=== PATIENT | female | born 1930 | race Native Hawaiian/Other Pacific Islander ===

== ENCOUNTER 2018-10-22 16:53 | Observation (INO) | payer MEDICARE, MEDICAID ==
[2018-10-22 16:53] VITALS: BMI 26.3
[2018-10-22] MEDS ORDERED: Iohexol 240 (50 ml) PO STA (17:54)
--- NOTE | 2018-10-22 18:01 | C.PDOC ---
History Of Present Illness 88-year-old female presents to the ED for evaluation of right-sided flank pain that has been radiating into her right lower abdomen for months. Patient states she initially had a big rash to the area, but now has scarring to her skin that looks like healed shingles. Patient states her pain has been constant since onset and has been progressively worsening. She was able to find transient relief after applying Biofreeze gel onto the area. However, over the past week her pain has been worsening and unrelieved even after the gel application. Patient was evaluated by her PMD, Dr. Kathleen, who referred her to the ED for further evaluation. Patient states she has been eating/drinking well and denies fever, chills, weight change, changes in urinary/bowel habits. Time Seen by Provider: 10/22/18 17:28 Chief Complaint (Nursing): Abdominal Pain History Per: Patient History/Exam Limitations: no limitations Onset/Duration Of Symptoms: Other (months ) Current Symptoms Are (Timing): Worse Location Of Pain/Discomfort: RLQ Radiation Of Pain To:: Flank (right) Quality Of Discomfort: "Pain" Associated Symptoms: denies: Fever, Chills, Urinary Symptoms Additional History Per: Patient Abnormal Vaginal Bleeding: No Past Medical History Reviewed: Historical Data, Nursing Documentation, Vital Signs Vital Signs: Last Vital Signs Temp 98.1 F 10/22/18 16:55 Pulse 99 H 10/22/18 16:55 Resp 18 10/22/18 16:55 BP 116/75 10/22/18 16:55 Pulse Ox 100 10/22/18 16:55 Primary Care Provider: Chris Kathleen - Medical History PMH: Gastritis, HTN Surgical History: No Surg Hx - [facility] Procedures CLOSED ENDOSCOPIC BIOPSY OF LARGE INTESTINE (10/19/14) ESOPHAGOGASTRODUODENOSCOPY [EGD] W/CLOSED BIOPSY (10/19/14) Family History: States: Unknown Family Hx - Social History Hx Tobacco Use: Yes Hx Alcohol Use: No Hx Substance Use: No - Immunization History Hx Tetanus Toxoid Vaccination: No Hx Influenza Vaccination: No Hx Pneumococcal Vaccination: No Review Of Systems Constitutional: Negative for: Fever, Chills, Weight loss Gastrointestinal: Positive for: Abdominal Pain (right-sided). Negative for: Diarrhea, Constipation Genitourinary: Negative for: Dysuria, Frequency, Hematuria Musculoskeletal: Positive for: Other (right flank pain ) Skin: Positive for: Rash Physical Exam - Physical Exam Appears: Non-toxic, No Acute Distress Skin: Warm, Dry, Other (pigmentation from healed shingles-like rash around T11- T12 dermatomes ) Head: Atraumatic, Normacephalic Neck: Supple Chest: Symmetrical, No Deformity, No Tenderness Cardiovascular: Rhythm Regular, No Murmur Respiratory: Normal Breath Sounds, No Rales, No Rhonchi, No Wheezing Gastrointestinal/Abdominal: Soft, Tenderness (right lower quadrant ), Guarding (localized ), No Rebound Back: No CVA Tenderness Extremity: Normal ROM, Capillary Refill (less than 2 seconds ) Neurological/Psych: Oriented x3, Normal Speech, Normal Cognition ED Course And Treatment - Laboratory Results Result Diagrams: 10/22/18 18:29 10/22/18 18:29 Lab Interpretation: No Acute Changes O2 Sat by Pulse Oximetry: 100 (on RA) Pulse Ox Interpretation: Normal - CT Scan/US CT abd/pel Other Rad Studies (CT/US): Read By Radiologist, Radiology Report Reviewed CT/US Interpretation: EXAM: CT Abdomen and Pelvis with IV and oral contrast agent. CLINICAL HISTORY: Abd pain right sided flank pain. TECHNIQUE: Axial computed tomography images of the abdomen and pelvis with intravenous contrast. 0.00 mGy-cm. CONTRAST: With; OMNI 240 & 100MLS VISI 320. COMPARISON: None provided. FINDINGS: LUNG BASES: The lung bases appear clear. No pleural effusions are seen. LIVER: A 0.9 cm and a 1.1 cm cysts are seen in the anterior and anterolateral right hepatic lobe respectively. GALLBLADDER AND BILE DUCTS: There are several noncalcified densities seen in the gallbladder lumen compatible with noncalcified choleliths. No biliary ductal dilatation is evident. PANCREAS: Unremarkable. SPLEEN: Unremarkable. ADRENAL GLANDS: A 1.5 x 1.0 cm solid homogeneous mass is seen in the right adrenal gland thought compatible with a small cortical adenoma. Unremarkable left adrenal gland. KID NEYS, URETERS, AND BLADDER: The right kidney is not identified thought compatible with previous right nephrectomy; or less likely, congenital aplasia. The left kidney appears normal in size and position.There is no hydronephrosis or hydroureter. No urinary calculi are seen. The urinary bladder appears normal in size and configuration. STOMACH AND BOWEL: A small hiatal hernia is noted. Unremarkable appearance of the stomach. There is mucosal wall edematous thickening of the duodenal bulb and descending duodenum compatible with duodenitis. No evidence of bowel obstruction. No evidence suggesting enteritis or colitis. APPENDIX: No evidence of acute appendicitis on CT examination. PERITONEUM: No free fluid. No free air. LYMPH NODES: No lymphadenopathy is evident. REPRODUCTIVE: Unremarkable as visualized. VASCULATURE: No evidence of abdominal aortic aneurysm. Moderate atherosclerotic vascular plaquing is present. BONES: No aggressive appearing osseous lesion. No acute osseous pathology evident. IMPRESSION: 1. There is evidence of duodenitis involving the first and second portions. 2. Noncalcified gallstones. Consider correlation with right upper quadrant ultrasound. 3. Status post right nephrectomy or congenital aplasia. Correlation with past known surgical history is needed. Progress Note: Bloodwork, urinalysis and CT A/P ordered and reviewed. Reevaluation Time: 22:33 Reassessment Condition: Improved - Physician Consult Information Time Consulting Physician Contacted: 22:33 Physician Contacted: Chris Kathleen Outcome Of Conversation: He knows the patient well. Will keep her for observatio n for abdominal pain. Disposition - Disposition Disposition: HOSPITALIZED Disposition Time: 22:34 Condition: STABLE - POA Present On Arrival: None - Clinical Impression Clinical Impression: Right flank pain, Post herpetic neuralgia - Scribe Statement The provider has reviewed the documentation as recorded by the Scribe (Lorraine Rios) Provider Attestation: All medical record entries made by the Scribe were at my direction and personally dictated by me. I have reviewed the chart and agree that the record accurately reflects my personal performance of the history, physical exam, medical decision making, and the department course for this patient. I have also personally directed, reviewed, and agree with the discharge instructions and disposition.
[2018-10-22] MEDS ORDERED: Iohexol 240 (50 ml) ONE (18:08)
[2018-10-22 18:10] LABS: SQUAMOUS EPITHIAL < 1 /hpf (0-5); URINE BILIRUBIN NEGATIVE (NEGATIVE); URINE BLOOD NEGATIVE (NEGATIVE); URINE CLARITY Clear (Clear); URINE COLOR Yellow (YELLOW); URINE GLUCOSE (UA) 1+ mg/dL (Normal); URINE LEUKOCYTE ESTERASE NEG Leu/uL (Negative); URINE PROTEIN NEGATIVE (NEGATIVE); URINE UROBILINOGEN NORMAL mg/dL (0.2-1.0)
[2018-10-22 18:38] LABS: BASO # 0.1 K/uL (0.0-0.2); EOS # 0.2 K/uL (0.0-0.7); EOS % 3.5 % (0.0-4.0); LYMPH # 1.5 K/uL (1.0-4.3); LYMPH % 28.2 % (20.0-40.0); MEAN CELL VOLUME 92.1 fL (81.0-99.0); MEAN CORPUSCULAR HEMOGLOBIN 30.1 pg (27.0-31.0); MEAN CORPUSCULAR HGB CONC 32.7 g/dL (33.0-37.0); MEAN PLATELET VOLUME 7.5 fL (7.2-11.7); MONO # 0.5 K/uL (0.0-0.8); MONO % 9.6 % (0.0-10.0); NEUT % 57.7 % (50.0-75.0); RBC 3.98 Mil/uL (3.80-5.20); RED CELL DISTRIBUTION WIDTH 13.4 % (11.5-14.5); WHITE BLOOD COUNT 5.2 K/uL (4.8-10.8)
[2018-10-22 18:50] LABS: ALB/GLOB RATIO 1.5 (1.0-2.1); ALBUMIN 4.2 g/dL (3.5-5.0); CALCIUM 9.4 mg/dl (8.6-10.4)
[2018-10-22] MEDS ORDERED: Iodixanol 320 MG/ML 100 ML BOTTLE IV ONE (20:53)
--- NOTE | 2018-10-22 23:20 | CP.PCM.HP ---
Present on Admission - Present on Admission Any Indicators Present on Admission: No Past Patient History - Past Medical History & Family History Past Medical History?: Yes - Past Social History Smoking Status: Never Smoked - CARDIAC Hx Hypertension: Yes - MUSCULOSKELETAL/RHEUMATOLOGICAL Hx Falls: No - GASTROINTESTINAL Hx Gastritis: Yes - PSYCHIATRIC Hx Substance Use: No - SURGICAL HISTORY Other/Comment: R nephrectomy ? 2000 - ANESTHESIA Hx Anesthesia: Yes Hx Anesthesia Reactions: No Meds Allergies/Adverse Reactions: Allergies Allergy/AdvReac Type Severity Reaction Status Date / Time No Known Allergies Allergy Verified 10/19/14 14:02 Results - Vital Signs Recent Vital Signs: Last Vital Signs Temp 98.9 F 10/22/18 22:02 Pulse 82 10/22/18 22:02 Resp 14 10/22/18 22:02 BP 122/71 10/22/18 22:02 Pulse Ox 100 10/22/18 22:34 - Labs Result Diagrams: 10/22/18 18:29 10/22/18 18:29 Labs: Laboratory Results - last 24 hr 10/22/18 10/22/18 10/22/18 17:43 18:29 18:29 WBC 5.2 RBC 3.98 Hgb 12.0 D Hct 36.7 MCV 92.1 MCH 30.1 MCHC 32.7 L RDW 13.4 Plt Count 176 MPV 7.5 Neut % (Auto) 57.7 Lymph % (Auto) 28.2 [place] % (Auto) 9.6 Eos % (Auto) 3.5 Baso % (Auto) 1.0 Neut # (Auto) 3.0 Lymph # (Auto) 1.5 [place] # (Auto) 0.5 Eos # (Auto) 0.2 Baso # (Auto) 0.1 Sodium 136 Potassium 4.7 Chloride 101 Carbon Dioxide 27 Anion Gap 12 BUN 18 H Creatinine 1.5 H Est GFR ( Amer) 40 Est GFR (Non-Af Amer) 33 Random Glucose 161 H D Calcium 9.4 Total Bilirubin 0.3 AST 18 ALT 13 Alkaline Phosphatase 66 Total Protein 7.0 Albumin 4.2 Globulin 2.8 Albumin/Globulin Ratio 1.5 Lipase 258 Urine Color Yellow Urine Clarity Clear Urine pH 6.0 Ur Specific [place] 1.009 Urine Protein Negative Urine Glucose (UA) 1+ Urine Ketones Negative Urine Blood Negative Urine Nitrate Negative Urine Bilirubin Negative Urine Urobilinogen Normal Ur Leukocyte Esterase Neg Urine WBC (Auto) 1 Ur Squamous Epith Cells < 1
[2018-10-23 00:23] VITALS: RESP 20
--- NOTE | 2018-10-23 08:45 | HP ---
CHIEF COMPLAINT: Right flank pain x 1 day. HISTORY OF PRESENT ILLNESS: This is an 88-year-old [place]ian female with history of postherpetic neuralgia in the right lower quadrant, history of hypertension, diabetes, and hyperlipidemia, who is compliant with her diet medication and followup. Her history of confusing. There is possibility of atresia of right kidney, but there is also a possibility that she might have nephrectomy in the past and the patient came in because of right lower quadrant abdominal pain. The patient has postherpetic neuralgia and she is on multiple medications, bot now her pain is more to her right lower quadrant, not associated with any nausea, vomiting, diarrhea. No constipation. She denies any dysuria, hematuria, or pyuria. She denies any hematemesis, melena, or hematochezia. She denies any history of polyuria, polydipsia, or polyphagia. She denies any cough, sore throat, or runny nose. She has been applying Biofreeze Gel on her right lower quadrant area, but pain got worse over the last one week despite gel and the patient was evaluated by me and a possibility of intra-abdominal inflammatory process was raised and the patient was brought to the emergency room. The patient is able to eat well. She feels weak, tired. She denies any cough or sore throat. She denies any history of trauma to the right lower quadrant. She denies any history of seizure-like activity, fall, or loss of consciousness. CURRENT MEDICATIONS: Percocet, Glucophage, Zofran, Pepcid, Colace, Os-Harish, , and Tylenol. SOCIAL HISTORY: Nonsmoker, non-ETOH user. PAST MEDICAL HISTORY: Diabetes, hypertension, hyperlipidemia, postherpetic neuralgia. PHYSICAL EXAMINATION: GENERAL: In distress with pain. VITAL SIGNS: Blood pressure 116/75, pulse 99, respiratory rate 18, and temperature 98.1. SKIN: The patient has hyperpigmented spots in the right flank area with no open vesicles or superadded infection or patchy lesion. HEENT: Atraumatic and normocephalic, negative pallor, negative jaundice. Extraocular movements are intact. NECK: Supple, no JVD, no lymph node, no thyromegaly, no carotid bruits. CHEST WALL: Bilateral symmetrical expansion. No tenderness. No deformity. LUNGS: Bilaterally clear. No rales, no rhonchi. CARDIOVASCULAR SYSTEM: S1 and S2, regular. No heave, no thrill. ABDOMEN: Soft, right lower quadrant tenderness. No guarding, no rebound, no rigidity. Bowel sounds are present. RECTAL: Negative. EXTREMITIES: No clubbing, cyanosis, or edema. CENTRAL NERVOUS SYSTEM: Awake, alert, oriented x3. ASSESSMENT: 1. Right lower quadrant pain, rule out urinary tract infection, rule out appendicitis, rule out peritonitis, rule out gastritis. 2. Dehydration. 3. Postherpetic neuralgia. 4. Diabetes. 5. Hypertension. PLAN: Admit. Detailed orders are written. Seen and examined. Chris Kathleen MD
--- NOTE | 2018-10-23 08:56 | CT ---
Date of service: 10/22/2018 PROCEDURE: CT Abdomen and Pelvis with contrast HISTORY: abd pain COMPARISON: None. TECHNIQUE: Contrast dose: 100 mL Visipaque 320 Radiation dose: Total exam DLP = 903.45 mGy-cm. This CT exam was performed using one or more of the following dose reduction techniques: Automated exposure control, adjustment of the mA and/or kV according to patient size, and/or use of iterative reconstruction technique. FINDINGS: LOWER THORAX: Unremarkable. LIVER: Multiple very small rounded low-attenuation masses in the right and left lobes, nonspecific largest such mass measures 9 mm. No biliary dilatation. Smooth contour. Normal attenuation. Normal size. GALLBLADDER AND BILE DUCTS: Sludge or noncalcified calculi are seen within the gallbladder lumen. There is minimal thickening of the gallbladder wall. There is no pericholecystic inflammatory change or fluid. PANCREAS: Unremarkable. No gross lesion or ductal dilatation. SPLEEN: Nonspecific 7 mm low attenuation lesion in the spleen. Normal size. ADRENALS: Unremarkable. No mass. KIDNEYS AND URETERS: Absent right kidney. No postoperative changes. Possible developmental anomaly. Unremarkable left kidney. VASCULATURE: Unremarkable. No aortic aneurysm. There is atherosclerotic calcification of the abdominal aorta. BOWEL: There is mild circumferential mural thickening of the gastric antrum. Consistent with nonspecific antritis. Doubt neoplasm. No bowel obstruction. Mild sigmoid diverticulosis. No evidence of diverticulitis. No other abnormal bowel loops are appreciated. APPENDIX: Normal appendix. PERITONEUM: Unremarkable. No free fluid. No free air. LYMPH NODES: Unremarkable. No enlarged lymph nodes. BLADDER: Unremarkable. 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 No acute fracture. OTHER FINDINGS: None. 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 Circumferential mural thickening of the gastric antrum consistent with nonspecific antritis. Sludge versus noncalcified calculi within gallbladder lumen and mild gallbladder wall thickening. Nonspecific. Consider correlation with right upper quadrant abdominal ultrasound examination. Multiple additional nonacute findings as above. The preliminary findings for this examination were reported by [facility] at 10:25 p.m. on 10/22/2018. There is discordance of this report with the preliminary findings. There is no evidence of duodenitis. There is nonspecific antritis noted. The remainder of the preliminary report is in agreement.
[2018-10-23] MEDS ORDERED: Oxycodone/Acetaminophen 5/325 mg Tab PO PRN (09:29)
[2018-10-23] MEDS: Enoxaparin 40 mg Syringe SC SCH (10:41)
[2018-10-23] MEDS: Belladonna-Phenobarbital PO SCH ×3 (10:41→17:45)
[2018-10-23] MEDS ORDERED: Glucagon Recombinant 1 mg Inj IM PRN (12:28)
[2018-10-23] MEDS ORDERED: Dextrose 50% SYRINGE Inj (50 ml) IV PRN (12:28)
[2018-10-23] MEDS: (Novolin R) Insulin Human Regular 100 units/ml vial SC SCH ×3 (12:50→21:35)
--- NOTE | 2018-10-23 23:05 | CP.PCM.PN ---
Subjective - Date & Time of Evaluation Date of Evaluation: 10/23/18 Time of Evaluation: 07:40 - Subjective Subjective: dict Objective - Vital Signs/Intake and Output Vital Signs (last 24 hours): Temp Pulse Resp BP Pulse Ox 98.3 F 77 20 109/68 96 10/23/18 15:30 10/23/18 15:30 10/23/18 15:30 10/23/18 15:30 10/23/18 15:30 Intake and Output: 10/23/18 10/24/18 18:59 06:59 Intake Total 700 Balance 700 - Medications Medications: Current Medications Acetaminophen (Tylenol 325mg Tab) 650 mg PO Q6 PRN PRN Reason: Pain, Mild (1-3) Belladonna/Phenobarbital () 1 tab PO TID [facility] Last Admin: 10/23/18 17:45 Dose: 1 tab Calcium Carbonate (Oscal) 500 mg PO DAILY [facility] Last Admin: 10/23/18 10:42 Dose: 500 mg Dextrose (Dextrose 50% Inj) 0 ml IV STAT PRN; Protocol PRN Reason: Hypoglycemia Protocol Dextrose (Glutose 15) 0 gm PO ONCE PRN; Protocol PRN Reason: Hypoglycemia Protocol Docusate Sodium (Colace) 100 mg PO BID [facility] Last Admin: 10/23/18 17:45 Dose: 100 mg Enoxaparin Sodium (Lovenox) 40 mg SC DAILY [facility] Last Admin: 10/23/18 10:41 Dose: 40 mg Famotidine (Pepcid) 20 mg PO BID [facility] Last Admin: 10/23/18 17:45 Dose: 20 mg Glucagon (Glucagen Diagnostic Kit) 0 mg IM STAT PRN; Protocol PRN Reason: Hypoglycemia Protocol Dextrose (Dextrose 5% In Water 1000 Ml) 1,000 mls @ 0 mls/hr IV .Q0M PRN; Protocol PRN Reason: Hypoglycemia Protocol Insulin Human Regular (Novolin R) 0 unit SC ACHS [facility]; Protocol Last Admin: 10/23/18 21:35 Dose: Not Given Lidocaine (Lidoderm) 1 ea TD DAILY [facility] Admin: 10/23/18 17:45 Dose: 500 mg Ondansetron HCl (Zofran Inj) 4 mg IVP Q6 PRN PRN Reason: Nausea/Vomiting Oxycodone/Acetaminophen (Percocet 5/325 Mg Tab) 1 tab PO Q4H PRN PRN Reason: Pain, moderate (4-7) Stop: 10/26/18 09:30 Pneumococcal Polyvalent Vaccine (Pneumovax 23 Vaccine) 0.5 ml IM .ONCE ONE Stop: 10/24/18 10:01 Pregabalin (Lyrica) 50 mg PO BID [facility] Last Admin: 10/23/18 20:19 Dose: 50 mg - Labs Labs: 10/22/18 18:29 10/22/18 18:29
[2018-10-24 07:39] LABS: BASO % 0.7 % (0.0-2.0); EOS # 0.2 K/uL (0.0-0.7); EOS % 4.4 % (0.0-4.0); HEMOGLOBIN 11.7 g/dL (11.0-16.0); LYMPH # 1.6 K/uL (1.0-4.3); LYMPH % 35.3 % (20.0-40.0); MEAN CELL VOLUME 90.2 fL (81.0-99.0); MEAN CORPUSCULAR HEMOGLOBIN 30.5 pg (27.0-31.0); MEAN CORPUSCULAR HGB CONC 33.8 g/dL (33.0-37.0); MEAN PLATELET VOLUME 7.7 fL (7.2-11.7); MONO # 0.4 K/uL (0.0-0.8); MONO % 10.1 % (0.0-10.0); NEUT # 2.2 K/uL (1.8-7.0); NEUT % 49.5 % (50.0-75.0); NRBC % 0.1 % (0.0-2.0); RBC 3.84 Mil/uL (3.80-5.20); RED CELL DISTRIBUTION WIDTH 13.7 % (11.5-14.5); WHITE BLOOD COUNT 4.5 K/uL (4.8-10.8)
[2018-10-24 07:54] LABS: CALCIUM 9.4 mg/dl (8.6-10.4)
[2018-10-24] MEDS: (Novolin R) Insulin Human Regular 100 units/ml vial SC SCH ×3 (08:35→17:20)
[2018-10-24] MEDS: Belladonna-Phenobarbital PO SCH ×3 (09:01→17:40)
[2018-10-24] MEDS: Enoxaparin 40 mg Syringe SC SCH (09:02)
--- NOTE | 2018-10-24 09:35 | US ---
Date of service: 10/24/2018 HISTORY: duodinitis on ct COMPARISON: CT abdomen/pelvis 10/22/2018 TECHNIQUE: Sonographic evaluation of the abdomen. FINDINGS: LIVER: Measures 12.7 cm. Diffusely increased echogenicity of the liver parenchyma. Consistent with fatty infiltration. Smooth contour. Two cysts, 7 x 9 x 10 mm and 0.9 x 1.3 x 1.5 cm. GALLBLADDER: Cholelithiasis. No mural thickening. No pericholecystic fluid. Negative sonographic Falcon sign. COMMON BILE DUCT: Measures 8. mm. Likely due to age related ectasia. PANCREAS: Unremarkable as visualized. No mass. No ductal dilatation. RIGHT KIDNEY: Right kidney not visualized, as on CT examination. LEFT KIDNEY: Measures 10.9cm. Normal echogenicity. No calculus, mass, or hydronephrosis. SPLEEN: Normal in size and contour. No mass. AORTA: No aneurysmal dilatation. IVC: Unremarkable. OTHER FINDINGS: None. IMPRESSION: Cholelithiasis without sonographic evidence of cholecystitis. Absent right kidney. Two small cysts in liver. Fatty infiltration of the liver.
[2018-10-24] MEDS ORDERED: Lidocaine 5% Patch TD SCH (10:00)
[2018-10-24] MEDS ORDERED: Pneumococcal 23-Valent Vaccine IM ONE ×2 (10:00→14:20)
[2018-10-24 16:22] VITALS: BP 110/70; PULSE 93; TEMP 98.5; O2SAT 98
--- NOTE | 2018-10-24 17:43 | CP.PCM.PN ---
Subjective - Date & Time of Evaluation Date of Evaluation: 10/24/18 Time of Evaluation: 11:40 - Subjective Subjective: Patient seen today , denies any chest pain , sob , abdominal pain , N/V , c/o R hip pain improved with pain medications OOb ambulating the [address] gait steady vss and labs reviewed- stable Objective - Vital Signs/Intake and Output Vital Signs (last 24 hours): Temp Pulse Resp BP Pulse Ox 98.5 F 93 H 20 110/70 98 10/24/18 16:00 10/24/18 16:00 10/24/18 16:00 10/24/18 16:00 10/24/18 16:00 Intake and Output: 10/24/18 10/24/18 06:59 18:59 Intake Total 650 300 Balance 650 300 - Medications Medications: Current Medications Acetaminophen (Tylenol 325mg Tab) 650 mg PO Q6 PRN PRN Reason: Pain, Mild (1-3) Belladonna/Phenobarbital () 1 tab PO TID [facility] Last Admin: 10/24/18 13:20 Dose: 1 tab Calcium Carbonate (Oscal) 500 mg PO DAILY [facility] Last Admin: 10/24/18 09:01 Dose: 500 mg Dextrose (Dextrose 50% Inj) 0 ml IV STAT PRN; Protocol PRN Reason: Hypoglycemia Protocol Dextrose (Glutose 15) 0 gm PO ONCE PRN; Protocol PRN Reason: Hypoglycemia Protocol Docusate Sodium (Colace) 100 mg PO BID [facility] Last Admin: 10/24/18 09:01 Dose: 100 mg Enoxaparin Sodium (Lovenox) 40 mg SC DAILY [facility] Last Admin: 10/24/18 09:02 Dose: 40 mg Famotidine (Pepcid) 20 mg PO BID [facility] Last Admin: 10/24/18 09:01 Dose: 20 mg Glucagon (Glucagen Diagnostic Kit) 0 mg IM STAT PRN; Protocol PRN Reason: Hypoglycemia Protocol Dextrose (Dextrose 5% In Water 1000 Ml) 1,000 mls @ 0 mls/hr IV .Q0M PRN; Protocol PRN Reason: Hypoglycemia Protocol Insulin Human Regular (Novolin R) 0 unit SC ACHS [facility]; Protocol Last Admin: 10/24/18 11:36 Dose: Not Given Lidocaine (Lidoderm) 1 ea TD DAILY [facility] Last Admin: 10/24/18 10:01 Dose: 1 ea Metformin HCl (Glucophage) 500 mg PO BIDCC [facility] Last Admin: 10/24/18 09:02 Dose: 500 mg Ondansetron HCl (Zofran Inj) 4 mg IVP Q6 PRN PRN Reason: Nausea/Vomiting Oxycodone/Acetaminophen (Percocet 5/325 Mg Tab) 1 tab PO Q4H PRN PRN Reason: Pain, moderate (4-7) Stop: 10/26/18 09:30 Last Admin: 10/24/18 09:23 Dose: 1 tab Pregabalin (Lyrica) 50 mg PO BID [facility] Last Admin: 10/24/18 09:01 Dose: 50 mg - Labs Labs: 10/24/18 07:31 10/24/18 07:31 Assessment and Plan - Assessment and Plan (Free Text) Assessment: A/P 88-year-old female with pmhx of DM presents to the ED for evaluation of right- sided flank pain that has been radiating into her right lower abdomen admitted with R flank pain and Post herpetic neuralgia US abdomen - cholelithiasis without evidence of cholesystitis Pain improved with lyrica and lidoderm patch D/w Dr. Kathleen cleared for discharge home today and f/u with Dr. Kathleen office in 1 week Discharge plan discussed with patient , who understands and agrees with plan
--- NOTE | 2018-10-25 00:03 | CP.PCM.DIS ---
Provider - Provider Date of Admission: 10/22/18 22:34 Attending physician: Chris Kathleen MD Time Spent in preparation of Discharge (in minutes): 30 Hospital Course - Lab Results Lab Results: Most Recent Lab Values WBC 4.5 K/uL (4.8-10.8) L 10/24/18 07:31 RBC 3.84 Mil/uL (3.80-5.20) 10/24/18 07:31 Hgb 11.7 g/dL (11.0-16.0) 10/24/18 07:31 Hct 34.7 % (34.0-47.0) 10/24/18 07:31 MCV 90.2 fL (81.0-99.0) 10/24/18 07:31 MCH 30.5 pg (27.0-31.0) 10/24/18 07:31 MCHC 33.8 g/dL (33.0-37.0) 10/24/18 07:31 RDW 13.7 % (11.5-14.5) 10/24/18 07:31 Plt Count 185 K/uL (130-400) 10/24/18 07:31 MPV 7.7 fL (7.2-11.7) 10/24/18 07:31 Neut % (Auto) 49.5 % (50.0-75.0) L 10/24/18 07:31 Lymph % (Auto) 35.3 % (20.0-40.0) 10/24/18 07:31 [place] % (Auto) 10.1 % (0.0-10.0) H 10/24/18 07:31 Eos % (Auto) 4.4 % (0.0-4.0) H 10/24/18 07:31 Baso % (Auto) 0.7 % (0.0-2.0) 10/24/18 07:31 Neut # (Auto) 2.2 K/uL (1.8-7.0) 10/24/18 07:31 Lymph # (Auto) 1.6 K/uL (1.0-4.3) 10/24/18 07:31 [place] # (Auto) 0.4 K/uL (0.0-0.8) 10/24/18 07:31 Eos # (Auto) 0.2 K/uL (0.0-0.7) 10/24/18 07:31 Baso # (Auto) 0.0 K/uL (0.0-0.2) 10/24/18 07:31 Sodium 138 mmol/L (132-148) 10/24/18 07:31 Potassium 4.3 mmol/L (3.6-5.2) 10/24/18 07:31 Chloride 105 mmol/L (98-107) 10/24/18 07:31 Carbon Dioxide 27 mmol/L (22-30) 10/24/18 07:31 Anion Gap 10 (10-20) 10/24/18 07:31 BUN 25 mg/dL (7-17) H 10/24/18 07:31 Creatinine 1.6 mg/dL (0.7-1.2) H 10/24/18 07:31 Est GFR ( Amer) 37 10/24/18 07:31 Est GFR (Non-Af Amer) 30 10/24/18 07:31 POC Glucose (mg/dL) 213 mg/dL (65-110) H 10/24/18 16:09 Random Glucose 138 mg/dL (65-105) H 10/24/18 07:31 Calcium 9.4 mg/dl (8.6-10.4) 10/24/18 07:31 Total Bilirubin 0.3 mg/dL (0.2-1.3) 10/22/18 18:29 AST 18 U/L (14-36) 10/22/18 18:29 ALT 13 U/L (9-52) 10/22/18 18:29 Alkaline Phosphatase 66 U/L (38-126) 10/22/18 18:29 Total Protein 7.0 g/dL (6.3-8.3) 10/22/18 18:29 Albumin 4.2 g/dL (3.5-5.0) 10/22/18 18:29 Globulin 2.8 gm/dL (2.2-3.9) 10/22/18 18:29 Albumin/Globulin Ratio 1.5 (1.0-2.1) 10/22/18 18:29 Lipase 258 U/L (23-300) 10/22/18 18:29 Urine Color Yellow (YELLOW) 10/22/18 17:43 Urine Clarity Clear (Clear) 10/22/18 17:43 Urine pH 6.0 (5.0-8.0) 10/22/18 17:43 Ur Specific [place] 1.009 (1.003-1.030) 10/22/18 17:43 Urine Protein Negative mg/dL (NEGATIVE) 10/22/18 17:43 Urine Glucose (UA) 1+ mg/dL (Normal) 10/22/18 17:43 Urine Ketones Negative mg/dL (NEGATIVE) 10/22/18 17:43 Urine Blood Negative (NEGATIVE) 10/22/18 17:43 Urine Nitrate Negative (NEGATIVE) 10/22/18 17:43 Urine Bilirubin Negative (NEGATIVE) 10/22/18 17:43 Urine Urobilinogen Normal mg/dL (0.2-1.0) 10/22/18 17:43 Ur Leukocyte Esterase Neg [place]/uL (Negative) 10/22/18 17:43 Urine WBC (Auto) 1 /hpf (0-5) 10/22/18 17:43 Ur Squamous Epith Cells < 1 /hpf (0-5) 10/22/18 17:43 Discharge Plan - Discharge Medications Prescriptions: SITagliptin [Januvia] 25 mg PO DAILY #30 tab Lidocaine 5% [Lidoderm] 1 ea TD DAILY #30 patch Pregabalin [Lyrica] 50 mg PO BID #60 cap Famotidine [Pepcid] 20 mg PO DAILY #30 tab - Follow Up Plan Condition: STABLE Disposition: HOME/ ROUTINE Instructions: Sitagliptin, Lidocaine (Topical), Flank Pain (DC), Pregabalin, Famotidine Referrals: Chris Kathleen MD [Staff Provider] -
--- NOTE | 2018-10-25 03:46 | PN ---
DATE: 10/24/2018 SUBJECTIVE: The patient has some right lower quadrant abdominal pain. Overall she is feeling better. She is afebrile. No shortness of breath. No nausea, vomiting. No dysuria. There is no appendicitis in the right lower quadrant on CAT scan. There is no rebound tenderness or guarding or rigidity. PHYSICAL EXAMINATION: VITAL SIGNS: Blood pressure 109/73, pulse 72, respiratory rate 20, temperature 98.4. LUNGS: Clear. CARDIOVASCULAR SYSTEM: S1, S2. Regular. ABDOMEN: Soft, nontender. Bowel sounds are positive. ASSESSMENT: 1. Right lower quadrant pain, rule out postherpetic neuralgia. 2. Hypertension. 3. Diabetes. PLAN: Continue current medication. Monitor the patient. Chris Kathleen MD
--- NOTE | 2018-10-25 08:33 | DS ---
DISCHARGE DIAGNOSES: 1. Postherpetic neuralgia. 2. Hypertension. 3. Type 2 diabetes. HOSPITAL COURSE: This is an 88-year-old Iranian female with right lower quadrant pain, possibility of acute appendicitis referred to emergency room. Pain was intractable. The patient was treated with antibiotics, Accu-Chek, sliding scale, GI, surgical evaluation, and the patient was found to have postherpetic neuralgia. The patient is being discharged on Lyrica and Lidoderm. Condition upon discharge is stable. PHYSICAL EXAMINATION: VITAL SIGNS: Blood pressure 110/72, pulse 93, respiratory rate 20, temperature 99.5. LUNGS: Clear. CARDIOVASCULAR SYSTEM: S1, S2, regular. ABDOMEN: Soft. PLAN: Discharge the patient. Outpatient followup. Chris Kathleen MD
== END 2018-10-24 18:57 | disposition home or self-care (01) ==
LOC: C.ER 16:53 → C.3T 22:34
PROVIDERS: ADMIT Internal Medicine; ATTEND Internal Medicine
DX: B02.29 Other postherpetic nervous system involvement (principal); I10 Essential (primary) hypertension; E11.9 Type 2 diabetes mellitus without complications; Z23 Encounter for immunization; R10.31 Right lower quadrant pain; E86.0 Dehydration; E78.5 Hyperlipidemia, unspecified; Z79.899 Other long term (current) drug therapy; Z90.5 Acquired absence of kidney; Z87.891 Personal history of nicotine dependence; K80.20 Calculus of gallbladder without cholecystitis without obstruction
CPT/HCPCS: 36415; 74177; 76700; 80048; 80053; 81001; 82948; 83690; 85025; 90732; 97116; 97161; 99284; G0009; G0378; G8978; G8979; G8980; J1650; Q9966; Q9967